=== PATIENT | male | born 1960 | race Caucasian/White ===

== ENCOUNTER 2019-01-22 20:56 | Emergency (ER) | payer OTHER ==
[2019-01-23] MEDS: DEXAMETHASONE 10 MG/ML 1 ML INJ IM (00:41)
[2019-01-23] MEDS: KETOROLAC 30 MG INJ IM (00:41)
== END 2019-01-23 01:35 | disposition home or self-care (01) ==
LOC: FTE 01-23 01:35
DX: M54.9 Dorsalgia, unspecified (principal); E11.9 Type 2 diabetes mellitus without complications
CPT/HCPCS: 96372; 99284-25